=== PATIENT | male | born 1985 | race Caucasian/White ===

== ENCOUNTER 2024-03-18 00:45 | Inpatient (IN) | payer OTHER ==
[~2024-03-18] VITALS: Ht 177.8 cm; Wt 100.0 kg
[2024-03-18 02:41] LABS: BASOPHILS % (AUTO) 0.4 % (0.0-2.0); EOSINOPHILS % (AUTO) 2.7 % (1.0-6.0); HEMATOCRIT 40.9 % (41-53); LYMPHOCYTES # (AUTO) 2.5 K/uL (1.0-4.8); LYMPHOCYTES % (AUTO) 24.4 % (22.0-44.0); MEAN CORPUSCULAR HEMOGLOBIN 29.6 pg (26.0-34.0); MEAN CORPUSCULAR HGB CONC 34.2 G/dL (31.0-37.0); MEAN CORPUSCULAR VOLUME 87 fL (80-100); MONOCYTES # (AUTO) 1.1 K/uL (0.1-1.0); MONOCYTES % (AUTO) 11.2 % (2.0-9.0); NEUTROPHILS # (AUTO) 6.2 K/uL (1.8-7.7); NEUTROPHILS % (AUTO) 61.3 % (40.0-70.0); PLATELET COUNT (AUTO) 370 K/uL (150-450); RED BLOOD CELL COUNT(AUTO) 4.72 MIL/uL (4.50-5.90); WHITE BLOOD COUNT (AUTO) 10.2 K/uL (4.5-11.0)
[2024-03-18] MEDS ORDERED: ONDANSETRON HCL 4 MG/2 ML VIAL IVP PRN (02:45)
[2024-03-18] MEDS ORDERED: LORazepam 2 MG/ML VIAL IVP PRN (02:45)
[2024-03-18] MEDS ORDERED: MAGNESIUM HYDROXIDE SUSPENSION 30 ML UDCUP PO PRN (02:45)
[2024-03-18 02:49] LABS: ANION GAP 3 mmol/L (8-16); CALCIUM, TOTAL 9.3 mg/dL (8.8-10.5); CARBON DIOXIDE 35 mmol/L (22-29); CHLORIDE 102 mmol/L (98-107); CREATININE 0.87 mg/dL (0.60-1.30); GLOMERULAR FILTR. RATE CALC > 60 mL/min (>60); GLUCOSE,RANDOM 97 mg/dL (70-110); POTASSIUM 4.8 mmol/L (3.5-5.1); SODIUM SERUM 140 mmol/L (136-145); UREA NITROGEN, BLOOD 14 mg/dL (7-18)
[2024-03-18 02:56] LABS: ALANINE AMINOTRANSFERASE 23 U/L (12-78); ALBUMIN 3.7 g/dL (3.4-5.0); ALKALINE PHOSPHATASE 90 U/L (46-116); ASPARTATE AMINOTRANSFERASE 19 U/L (15-37); BILIRUBIN,TOTAL 0.4 mg/dL (0.1-1.0); TOTAL PROTEIN, SERUM 7.6 g/dL (6.4-8.2)
[2024-03-18] MEDS: SODIUM CHLORIDE 0.9% 1,000 ML IV ONE (03:33)
[2024-03-18] MEDS: ONDANSETRON 4 MG TABLET PO ONE (03:34)
[2024-03-18] MEDS: ChlordiazePOXIDE HCL 25 MG CAPSULE PO ONE (03:34)
[2024-03-18] MEDS: 1: MAGNESIUM SULFATE 2 GM, MVI, ADULT NO.1 WITH VIT K 10 ML, THIAMINE 100 MG, FOLIC ACID IV SCH (03:49)
[2024-03-18] MEDS: FAMOTIDINE 20 MG TABLET PO SCH (08:21)
[2024-03-18 16:07] VITALS: BP 137/89; PULSE 72; RESP 20; TEMP 97.8; O2SAT 100
[2024-03-18] MEDS: ChlordiazePOXIDE HCL 25 MG CAPSULE PO PRN (17:49)
[2024-03-18 19:44] VITALS: BP 119/75; PULSE 80; RESP 20; TEMP 98.4; O2SAT 94
[2024-03-19 05:02] VITALS: BP 127/67; PULSE 73; RESP 18; TEMP 98.1; O2SAT 96
[2024-03-19] MEDS ORDERED: ChlordiazePOXIDE HCL 25 MG CAPSULE PO PRN (07:00)
[2024-03-19 07:32] VITALS: BP 139/75; PULSE 72; RESP 20; TEMP 98.5; O2SAT 95
[2024-03-19] MEDS: THIAMINE 100 MG TABLET PO SCH (08:14)
[2024-03-19] MEDS: ChlordiazePOXIDE HCL 25 MG CAPSULE PO SCH (08:14)
[2024-03-19 09:37] LABS: APPEARANCE,URINE CLEAR (CLEAR); BILIRUBIN,URINE NEGATIVE (NEGATIVE); COLOR,URINE LIGHT YELLOW (YELLOW); GLUCOSE, URINE (UA) NEGATIVE (NEGATIVE); KETONES,URINE NEGATIVE (NEGATIVE); LEUKOCYTE ESTERASE ,URINE NEGATIVE (NEGATIVE); NITRATE,URINE NEGATIVE (NEGATIVE); OCCULT BLOOD,URINE NEGATIVE (NEGATIVE); PH,URINE 6.5 (5.0-8.0); PROTEIN,URINE NEGATIVE (NEGATIVE); SPECIFIC GRAVITIY, URINE 1.016 (1.003-1.030); UROBILINOGEN,URINE <=1.0 mg/dL (<=1.0)
[2024-03-19 09:39] LABS: AMPHET/METH SCREEN,URINE POSITIVE (NEGATIVE); BARBITURATE SCREEN, URINE NEGATIVE (NEGATIVE); BENZODIAZEPINES SCREEN,URINE POSITIVE (NEGATIVE); CANNABINOID SCREEN,URINE NEGATIVE (NEGATIVE); COCAINE SCREEN,URINE NEGATIVE (NEGATIVE); METHADONE SCREEN, URINE NEGATIVE (NEGATIVE); OPIATE SCREEN,URINE NEGATIVE (NEGATIVE); PHENCYCLIDINE SCREEN,URINE NEGATIVE (NEGATIVE)
[2024-03-19 09:51] LABS: ALCOHOL, URINE DRUG SCREEN NEGATIVE (NEGATIVE)
[2024-03-19 10:14] LABS: PH,URINE DRUG SCREEN 6.5 (5.0-8.0)
[2024-03-19 12:33] VITALS: BP 129/79; PULSE 78; RESP 20; TEMP 98.4; O2SAT 95
[2024-03-19 19:32] VITALS: BP 137/78; PULSE 82; RESP 20; TEMP 98.3; O2SAT 97
[2024-03-19] MEDS: ACETAMINOPHEN 325 MG TABLET PO PRN (22:26)
[2024-03-19] MEDS: ZOLPIDEM TARTRATE 5 MG TABLET PO PRN (22:26)
[2024-03-20 06:23] VITALS: BP 135/76; PULSE 80; RESP 19; TEMP 98.4; O2SAT 96
[2024-03-20 08:04] VITALS: BP 123/77; PULSE 72; RESP 18; TEMP 98.4; O2SAT 94
[2024-03-20 20:42] VITALS: BP 128/75; PULSE 66; RESP 18; TEMP 97.8; O2SAT 93
[2024-03-20] MEDS ORDERED: SODIUM CHLORIDE 0.9% 1,000 ML ONE (22:25)
[2024-03-21 05:29] VITALS: BP 125/78; PULSE 65; RESP 18; O2SAT 97
[2024-03-21 06:01] LABS: BASOPHILS % (AUTO) 0.7 % (0.0-2.0); EOSINOPHILS % (AUTO) 0.8 % (1.0-6.0); HEMATOCRIT 40.2 % (41-53); HEMOGLOBIN 13.9 g/dL (13.5-17.5); LYMPHOCYTES # (AUTO) 2.1 K/uL (1.0-4.8); LYMPHOCYTES % (AUTO) 18.6 % (22.0-44.0); MEAN CORPUSCULAR HEMOGLOBIN 29.4 pg (26.0-34.0); MEAN CORPUSCULAR HGB CONC 34.6 G/dL (31.0-37.0); MEAN CORPUSCULAR VOLUME 85 fL (80-100); MONOCYTES # (AUTO) 1.1 K/uL (0.1-1.0); MONOCYTES % (AUTO) 9.4 % (2.0-9.0); NEUTROPHILS % (AUTO) 70.5 % (40.0-70.0); PLATELET COUNT (AUTO) 388 K/uL (150-450); RED BLOOD CELL COUNT(AUTO) 4.73 MIL/uL (4.50-5.90); RED CELL DISTRIBUTION WIDTH 12.5 % (11.5-14.5); WHITE BLOOD COUNT (AUTO) 11.3 K/uL (4.5-11.0)
[2024-03-21 06:19] LABS: ALANINE AMINOTRANSFERASE 17 U/L (12-78); ALBUMIN 3.1 g/dL (3.4-5.0); ALKALINE PHOSPHATASE 85 U/L (46-116); ANION GAP 8 mmol/L (8-16); ASPARTATE AMINOTRANSFERASE 16 U/L (15-37); BILIRUBIN,TOTAL 0.4 mg/dL (0.1-1.0); CALCIUM, TOTAL 8.7 mg/dL (8.8-10.5); CARBON DIOXIDE 28 mmol/L (22-29); CHLORIDE 104 mmol/L (98-107); CREATININE 0.85 mg/dL (0.60-1.30); GLOMERULAR FILTR. RATE CALC > 60 mL/min (>60); GLUCOSE,RANDOM 87 mg/dL (70-110); SODIUM SERUM 140 mmol/L (136-145); TOTAL PROTEIN, SERUM 6.9 g/dL (6.4-8.2); UREA NITROGEN, BLOOD 6 mg/dL (7-18)
[2024-03-21] MEDS ORDERED: ChlordiazePOXIDE HCL 10 MG CAPSULE PO PRN (07:00)
[2024-03-21] MEDS: ChlordiazePOXIDE HCL 10 MG CAPSULE PO SCH (07:58)
[2024-03-21 08:29] VITALS: BP 136/85; PULSE 92; RESP 20; TEMP 98.4; O2SAT 98
[2024-03-21 19:45] VITALS: BP 126/57; PULSE 65; RESP 18; TEMP 98.7; O2SAT 95
[2024-03-22 00:31] VITALS: BP 126/57; PULSE 65; RESP 20; TEMP 98.7; O2SAT 95
[2024-03-22 05:23] VITALS: BP 136/99; PULSE 80; RESP 18; TEMP 97.7; O2SAT 99
[2024-03-22] MEDS ORDERED: ChlordiazePOXIDE HCL 10 MG CAPSULE PO PRN (07:00)
== END 2024-03-22 07:25 | DRG 103 ==
LOC: EMS 00:49 → EDH 04:14 → 6S 12:28
PROVIDERS: ADMIT Internal Medicine; ATTEND Internal Medicine
DX: R51.9 Headache, unspecified (principal); F10.139 Alcohol abuse with withdrawal, unspecified; F11.23 Opioid dependence with withdrawal; E66.9 Obesity, unspecified; F19.10 Other psychoactive substance abuse, uncomplicated; M54.50 Low back pain, unspecified; Z68.31 Body mass index [BMI] 31.0-31.9, adult
CPT/HCPCS: 80048; 80053; 80076; 80307; 81003; 85025; 99285; J3411; J3475; J3490; J7030; Q0162